=== PATIENT | female | born 1945 | race African-American/Black ===

== ENCOUNTER 2018-08-09 23:02 | Inpatient (IN) ==
[2018-08-09] MEDS ORDERED: LORazepam 2 MG/1 ML VIAL IV PRN (23:56)
[2018-08-09] MEDS ORDERED: MORPHINE 4 MG/1 ML VIAL IV PRN (23:56)
[2018-08-09] MEDS ORDERED: ONDANSETRON 4 MG/2 ML VIAL IV PRN (23:56)
[2018-08-10] MEDS ORDERED: fentaNYL 25 MCG/HR PATCH TRANSDERM SCH (15:00)
[2018-08-10] MEDS ORDERED: SCOPOLAMINE 1.5 MG PATCH TRANSDERM SCH (15:00)
[2018-08-10 16:10] VITALS: BP 102/62
== END 2018-08-10 17:34 | disposition hospice, inpatient (51) | DRG 951 ==
LOC: EDBD → EDUNIT# → N.ED 23:02 → N.EDINP 23:56 → N.5E 08-10 00:31 → N.4E 08-10 14:11
PROVIDERS: ADMIT Hospitalist; ATTEND Hospitalist

== ENCOUNTER 2018-08-10 17:47 | Inpatient (IN) ==
[2018-08-10] MEDS ORDERED: ONDANSETRON 4 MG/2 ML VIAL IV PRN (18:08)
[2018-08-10] MEDS ORDERED: MORPHINE 4 MG/1 ML VIAL IV PRN (18:08)
[2018-08-10] MEDS ORDERED: LORazepam 2 MG/1 ML VIAL IV PRN (18:13)
[2018-08-10] MEDS ORDERED: PROMETHAZINE 25 MG SUPP RECTAL PRN (18:13)
[2018-08-10] MEDS ORDERED: ACETAMINOPHEN 650 MG SUPP RECTAL PRN (18:14)
[2018-08-10] MEDS: SCOPOLAMINE 1.5 MG PATCH TRANSDERM SCH (18:56)
[2018-08-10] MEDS: fentaNYL 25 MCG/HR PATCH TRANSDERM SCH (18:56)
[2018-08-13] MEDS: fentaNYL 25 MCG/HR PATCH TRANSDERM SCH (08:42)
[2018-08-13] MEDS: SCOPOLAMINE 1.5 MG PATCH TRANSDERM SCH (08:44)
[2018-08-13 12:33] VITALS: BP 110/60
== END 2018-08-13 21:28 | disposition expired | DRG 951 ==
LOC: N.4E 17:47
PROVIDERS: ADMIT Hospitalist; ATTEND Hospitalist